=== PATIENT | male | born 1945 | race Two or more races ===

== ENCOUNTER 2020-08-10 23:04 | Inpatient (IN) | payer MEDICARE, OTHER ==
[~2020-08-10] VITALS: Ht 170.2 cm; Wt 53.1 kg
[2020-08-10 23:48] LABS: HEMATOCRIT 22.9 % (42.0-52.0); HEMOGLOBIN 7.7 G/DL (14.2-18.0); MEAN CORPUSCULAR VOLUME 92 FL (80-99); PLATELET COUNT 160 K/UL (150-450); RED BLOOD COUNT 2.48 M/UL (4.70-6.10); RED CELL DISTRIBUTION WIDTH 17.5 % (11.6-14.8)
[2020-08-11] VITALS (8 sets, daily range): BP systolic 96–127; BP diastolic 59–79
[2020-08-11 00:01] LABS: ANION GAP 8 mmol/L (5-15); BLOOD UREA NITROGEN 27 mg/dL (7-18); CALCIUM 9.1 MG/DL (8.5-10.1); CARBON DIOXIDE 24 MMOL/L (21-32); CHLORIDE 100 MMOL/L (98-107); POTASSIUM 4.3 MMOL/L (3.5-5.1); SODIUM 132 MMOL/L (136-145)
[2020-08-11 00:04] LABS: INR 1.1 (0.9-1.1)
[2020-08-11 00:12] LABS: ALANINE AMINOTRANSFERASE 24 U/L (12-78); ALBUMIN 2.5 G/DL (3.4-5.0); ALBUMIN/GLOBULIN RATIO 0.6 (1.0-2.7); ALKALINE PHOSPHATASE 320 U/L (46-116); ASPARTATE AMINO TRANSFERASE 53 U/L (15-37); BILIRUBIN,TOTAL 1.4 MG/DL (0.2-1.0)
[2020-08-11 00:29] LABS: BILIRUBIN,DIRECT 1.1 MG/DL (0.0-0.3)
--- NOTE | 2020-08-11 00:31 | Emergency Room Report ---
History of Present Illness General Chief Complaint: Abnormal Labs Source: Patient Present Illness HPI 75-year-old male with past medical history of cirrhosis, diabetes, hypertension, dyslipidemia, anemia presents from [facility] for evaluation of anemia. Patient apparently had outpatient labs drawn on 08/10/2020 which showed hemoglobin of 6.1 and hematocrit of 18.9. Baseline hemoglobin from previous records on 08/04/2020 was 8.7. Patient states he is having generalized weakness. Denies melena, hematochezia, hematemesis, nausea, vomiting, diarrhea, chest pain, palpitations, weakness, headache or other symptoms The patient's symptoms were gradual onset, severity was moderate, duration since 1 day. Quality: No pain Past medical history: Cirrhosis, anemia, diabetes, hypertension, dyslipidemia Past surgical history: Denies Smoking: Denies Alcohol use: Denies Drug use: Denies Review of systems: CONST: No fevers or chills, No night sweats PULMONARY: No productive cough, No shortness of breath CARDIAC: No chest pain, No palpitations GI: No vomiting, No diarrhea , No melena_or_BRBPR : No dysuria, No hematuria, No discharge NEURO: No new_focal_weakness_or_numbness, No confusion, No vision changes 14 point Review of Systems is otherwise negative except per HPI Physical Exam: GENERAL: Awake_alert_ nontoxic, no acute distress Spo2 100% on RA -normal. Cachectic EYES: Extraocular muscles are intact. Conjunctivae clear. Lids without swelling. Oral icterus. Jaundice ENT: External nose and ear normal_in_appearance. Oropharynx clear. Head_atraumatic, Moist_oral_mucosa NECK: No JVD. No meningismus. No thyromegaly. Supple. Trachea midline RESP: Normal respiratory effort. Symmetric rise. No stridor. Clear_to_auscultation_No_rales_No_wheezes CARDIAC: Regular rate and regular rhytm. No_significant pedal edema. ABDOMEN: Soft. Nondistended. Nontender_No_rebound_or_guarding. Melena MSK: Normal muscle tone, without rigidity. Extremities without asymmetric deformity or swelling. SKIN: Warm and dry. No visible cyanosis or pallor NEUROLOGIC: Alert, oriented x3. Motor_and_sensation_grossly_intact. No truncal ataxia. Gait_normal. Asterix[employer] Psych: Normal mood and affect, normal judgment and insight - COORDINATION OF CARE Case was discussed with: Patient, Patient's Physician Any labs and imaging that were ordered were interpreted as part of the medical decision making: Medical Decision Making/Plan: Differential diagnosis includes upper GI bleed from bleeding peptic ulcer, bleeding duodenal ulcer, gastritis, esophageal varices, gastric varices, among others. Given the possibility of a bleeding peptic ulcer, Protonix IV was immediately started. Ceftriaxone IV also given. Because of Hgb 7 with melena, the patient will immediately be transfused 1 units of PRBC, and admitted for further care and management. The patient does not require any emergent anticoagulation reversal at this time point, although it was considered. Patient is protecting their airway, no active vomiting, no need for NG tube or intubation at this time. The patient is currently hemodynamically stable, and stable for transfer to the floor at this time. I spoke with Dr. Mota, and reviewed the patients presentation, workup, results, and treatment. They will admit the patient for further care and evaluation, and assume care of the patient at this time. 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 COVID-19 Screening: Negative COVID-19 COVID-19 Testing Source: 08/06/2020 Nursing Documentation-H Hx Cardiac Problems: Yes - ANEMIA, HYPERLIPIDEMIA, HYPOTHYROIDISM Hx Hypertension: Yes Hx Neurological Problems: Yes - METABOLIC ENCEPHALOPATHY, CELLULITIS OF LEFT LE G Physical Exam Vital Signs Date Time Temp Pulse Resp B/P (MAP) Pulse Ox O2 Delivery O2 Flow Rate FiO2 08/10/20 23:06 97.5 88 16 111/67 (82) 98 Room Air Sp02 EP Interpretation: reviewed, normal Procedures Critical Care Time Critical Care Time Critical Care Statement Organ systems at risk include:, Circulatory, GI Critical care performed for 45 minutes. Time is exclusive of separately billable procedures. Time includes: direct patient care, continuous monitoring and multiple patient reassessment, coordination of patient care, review of patient's medical records, medical consultation, family consultation regarding treatment decisions and documentation of patient care. Medical Decision Making Diagnostic Impression: Primary Impression: Melena Additional Impressions: GI bleed Cirrhosis Symptomatic anemia EKG Diagnostic Results Troponin ordered: Yes When was troponin ordered?: Aug 11, 2020 EKG Time: 00:30 Rate: normal Rhythm: NSR MANOLO Dealibsabra Reid 12-lead EKG (interpreted by me) Time: 004 Indication: Rhythm analysis Tracing visualized and Interpreted by me. Rhythm: Normal sinus rhythm Rate: 91 bpm QTc: 526 Morphology: No_significant_ST_elevations_or_depressions, No STEMI Impression: Bundle branch block. Normal sinus rhythm. Wide QTC Rhythm Strip Diag. Results Rhythm Strip Time: 00:31 EP Interpretation: yes Rate: 87 Rhythm: NSR, no PVC's, no ectopy Chest X-Ray Diagnostic Results Chest X-Ray Diagnostic Results : MANOLO Dealibsabra Reid Chest X-Ray: Views: 1 view(s) Indication: sob Findings: Normal heart size. Mediastinum normal. No infiltrate. Impression: NAD The X-ray(s) were independently viewed and interpreted contemporaneously Electronically signed by Sharifa valdivia DO Reevaluation Time: 00:31 Last Vital Signs Date Time Temp Pulse Resp B/P (MAP) Pulse Ox O2 Delivery O2 Flow Rate FiO2 08/11/20 00:16 98.2 86 19 126/59 100 Room Air Status: improved Disposition: ADMITTED INPATIENT Admit Decision Time: 00:31 Condition: Stable Referrals: Katt Mota MD (PCP) Sharifa Forrester D.O. Aug 11, 2020 00:31
[2020-08-11] MEDS ORDERED: Pantoprazole Inj IVP ONE (00:45)
[2020-08-11] MEDS ORDERED: cefTRIAXone 1 GM in NS 55 ML IVPB ONE (00:45)
[2020-08-11] MEDS ORDERED: ATORVASTATIN CA40 MG ORAL (02:08)
[2020-08-11] MEDS ORDERED: METFORMIN HCL850 M1 ORAL (02:08)
[2020-08-11] MEDS ORDERED: LISINOPRIL20 MG ORAL (02:08)
[2020-08-11] MEDS ORDERED: METOPROLOL TART25 MG ORAL (02:08)
[2020-08-11] MEDS ORDERED: LEVOTHYROXINE100 MC1 PO (02:08)
[2020-08-11] MEDS ORDERED: Morphine Sulfate 2mg/ml Inj(IV/IM USE ONLY) IVP PRN (03:15)
[2020-08-11] MEDS ORDERED: Miralax 17gm pkt ORAL PRN (03:15)
[2020-08-11] MEDS ORDERED: Pantoprazole Inj IV SCH (09:00)
[2020-08-11] MEDS: metFORMIN 500mg tab ORAL SCH ×2 (09:04→18:00)
[2020-08-11] MEDS: Lisinopril 20mg tab ORAL SCH (09:04)
[2020-08-11] MEDS: Docusate 100mg cap ORAL SCH ×2 (09:04→21:26)
--- NOTE | 2020-08-11 14:53 | Diagnostic Imaging Report ---
Indication: Shortness of breath Technique: One view of the chest Comparison: none Findings: No acute infiltrates, effusions, or congestion. Tortuous calcified aorta. Normal heart size. Upper mediastinum unremarkable. Impression: No acute process.
--- NOTE | 2020-08-11 15:27 | History and Physical ---
History of Present Illness General Date patient seen: Aug 11, 2020 Time patient seen: 13:00 Reason for Hospitalization: Abnormal Labs Present Illness HPI 75-year-old male with past medical history of liver cirrhosis, diabetes, hypertension, dyslipidemia, anemia presents from [facility] for evaluation of anemia. The patient is known to me since [facility] [place] [facility]. He developed melena yesterday with 3 large bouts of stool. [facility] outpatient labs drawn on 08/10/2020 which showed hemoglobin of 6.1 and hematocrit of 18.9. Baseline hemoglobin from previous records on 08/04/2020 was 8.7. Patient states he is having generalized weakness. Denies melena, hematochezia, hematemesis, nausea, vomiting, diarrhea, chest pain, palpitations, weakness, headache or other symptoms The patient's symptoms were gradual onset, severity was moderate, duration since 1 day. I spoke with the ER physician and admission was requested for PRBC and hemodynamic monitoring. Allergies: Coded Allergies: No Known Allergies (Unverified , 08/10/20) COVID-19 Screening Contact w/high risk pt: Yes Experienced COVID-19 symptoms?: No Medication History Scheduled Atorvastatin Calcium* (Atorvastatin Calcium*), 40 MG ORAL BEDTIME, (Reported) Levothyroxine Sodium* (Levothyroxine Sodium*), 50 MCG PO DAILY, (Reported) Lisinopril (Lisinopril*), 20 MG ORAL DAILY, (Reported) Metformin Hcl* (Metformin Hcl*), 1,000 MG ORAL BID, (Reported) Metoprolol Tartrate* (Metoprolol Tartrate*), 25 MG ORAL EVERY 12 HOURS, (Reported) Patient History Healthcare decision maker Resuscitation status Advanced Directive on File Review of Systems All Other Systems: negative except mentioned in HPI Physical Exam General Appearance: WD/WN, mild distress Lines, tubes and drains: peripheral HEENT: normocephalic, atraumatic Neck: non-tender Respiratory/Chest: lungs clear Cardiovascular/Chest: normal rate Abdomen: non tender Extremities: non-tender 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 Last 24 Hour Vital Signs Date Time Temp Pulse Resp B/P (MAP) Pulse Ox O2 Delivery O2 Flow Rate FiO2 08/11/20 13:41 96 08/11/20 09:04 113/67 08/11/20 09:00 95 113/67 08/11/20 09:00 Room Air 08/11/20 08:34 95 18 113/67 (82) 100 08/11/20 08:00 99 08/11/20 05:45 Room Air 08/11/20 05:28 98.5 92 18 96/79 98 Room Air 08/11/20 05:15 98.5 92 18 96/79 98 Room Air 08/11/20 05:15 98.5 65 18 08/11/20 05:00 98.1 75 18 08/11/20 05:00 98.1 92 18 111/60 98 Room Air 08/11/20 02:55 97.8 92 19 127/62 98 Room Air 08/11/20 00:16 98.2 86 19 126/59 100 Room Air 08/10/20 23:06 97.5 88 16 111/67 (82) 98 Room Air Intake and Output 08/10/20 08/11/20 19:00 07:00 Intake Total 1500 ml Balance 1500 ml Intake IV Total 1000 ml Blood Product 500 ml Laboratory Tests Test 08/10/20 23:15 08/10/20 23:30 08/10/20 23:45 08/11/20 00:27 White Blood Count 6.0 K/UL (4.8-10.8) Red Blood Count 2.48 M/UL (4.70-6.10) L Hemoglobin 7.7 G/DL (14.2-18.0) L Hematocrit 22.9 % (42.0-52.0) L Mean Corpuscular Volume 92 FL (80-99) Mean Corpuscular Hemoglobin 31.0 PG (27.0-31.0) Mean Corpuscular Hemoglobin Concent 33.5 G/DL (32.0-36.0) Red Cell Distribution Width 17.5 % (11.6-14.8) H Platelet Count 160 K/UL (150-450) Mean Platelet Volume 8.7 FL (6.5-10.1) Neutrophils (%) (Auto) % (45.0-75.0) Lymphocytes (%) (Auto) % (20.0-45.0) Monocytes (%) (Auto) % (1.0-10.0) Eosinophils (%) (Auto) % (0.0-3.0) Basophils (%) (Auto) % (0.0-2.0) Prothrombin Time 12.4 SEC (9.30-11.50) H Prothromb Time International Ratio 1.1 (0.9-1.1) Activated Partial Thromboplast Time 24 SEC (23-33) Sodium Level 132 MMOL/L (136-145) L Potassium Level 4.3 MMOL/L (3.5-5.1) Chloride Level 100 MMOL/L (98-107) Carbon Dioxide Level 24 MMOL/L (21-32) Anion Gap 8 mmol/L (5-15) Blood Urea Nitrogen 27 mg/dL (7-18) H Creatinine 1.0 MG/DL (0.55-1.30) Estimat Glomerular Filtration Rate > 60 mL/min (>60) Glucose Level 97 MG/DL (74-106) Calcium Level 9.1 MG/DL (8.5-10.1) Total Bilirubin 1.4 MG/DL (0.2-1.0) H Direct Bilirubin 1.1 MG/DL (0.0-0.3) H Aspartate Amino Transf (AST/SGOT) 53 U/L (15-37) H Alanine Aminotransferase (ALT/SGPT) 24 U/L (12-78) Alkaline Phosphatase 320 U/L (46-116) H Troponin I 0.022 ng/mL (0.000-0.056) Total Protein 7.0 G/DL (6.4-8.2) Albumin 2.5 G/DL (3.4-5.0) L Globulin 4.5 g/dL Albumin/Globulin Ratio 0.6 (1.0-2.7) L Lipase 140 U/L (73-393) Ammonia 18 umol/L (11-32) Stool Occult Blood Positive (NEGATIVE) POC Whole Blood Glucose 90 MG/DL (74-106) Microbiology Date/Time Source Procedure Growth Status 08/10/20 23:30 Nasopharynx SARS-CoV-2 RdRp Gene Assay - Final Complete Height (Feet): 5 Height (Inches): 7.00 Weight (Pounds): 142 Medications Current Medications Medications (Trade) Dose Ordered Sig/Lauren Route PRN Reason Start Time Stop Time Status Last Admin Dose Admin Acetaminophen (Tylenol) 650 mg Q4H PRN ORAL Mild Pain (Pain Scale 1-3) 08/11/20 03:15 09/10/20 03:14 Atorvastatin Calcium (Lipitor) 40 mg BEDTIME ORAL 08/11/20 21:00 11/09/20 20:59 Ceftriaxone Sodium 1 gm/ Sodium Chloride 55 ml @ 110 mls/hr DAILY@2100 IVPB 08/11/20 21:00 08/18/20 20:59 Dextrose (Dextrose 50%) 25 ml Q30M PRN IV Hypoglycemia 08/11/20 03:15 11/09/20 03:14 Dextrose (Dextrose 50%) 50 ml Q30M PRN IV Hypoglycemia 08/11/20 03:15 11/09/20 03:14 Docusate Sodium (Colace) 100 mg EVERY 12 HOURS ORAL 08/11/20 09:00 09/10/20 08:59 08/11/20 09:04 Levothyroxine Sodium (Synthroid) 50 mcg DAILY@0630 ORAL 08/11/20 07:30 09/10/20 07:29 08/11/20 09:18 Lisinopril (PriniviL) 20 mg DAILY ORAL 08/11/20 09:00 09/10/20 08:59 08/11/20 09:04 Metformin HCl (Glucophage) 1,000 mg BID ORAL 08/11/20 09:00 09/10/20 08:59 08/11/20 09:04 Metoprolol Tartrate (Lopressor) 25 mg EVERY 12 HOURS ORAL 08/11/20 09:00 11/09/20 08:59 Morphine Sulfate (Morphine Sulfate) 2 mg Q3H PRN IVP Moderate Pain (Pain Scale 4-6) 08/11/20 03:15 08/18/20 03:14 Octreotide Acetate 500 mcg/ Sodium Chloride 500 ml @ 50 mls/hr Q10H IV 08/11/20 15:00 09/10/20 14:59 Ondansetron HCl (Zofran) 4 mg Q6H PRN IVP Nausea & Vomiting 08/11/20 03:15 09/10/20 03:14 Pantoprazole (Protonix) 40 mg EVERY 12 HOURS IV 08/11/20 21:00 09/10/20 20:59 Polyethylene Glycol (Miralax) 17 gm DAILYPRN PRN ORAL Constipation 08/11/20 03:15 09/10/20 03:14 Assessment/Plan Assessment/Plan: 75 year old male with history of liver cirrhosis who is admitted due to : # Acute blood loss anemia due to GI hemorrhage of uncertain etiology PPI started PRBC 2 units given Repeat H/H today as persistent melana is noted. GI consultation requested Liver US Await GI recommendations. # Liver Cirrhosis Monitor LFT's INR is stable at 1.1 # History of diabetes Monitor BG and [place] # Hypertension Monitor and adjust medication as needed. # HLD On statin Diet: Cardiac for now. Await GI input for any need for interventions. IV: HL FULL CODE - will discuss in detail with the patient as he had expressed wished to be DNR in the SNF. SCD ppx Activity as tolerated Katt Mota MD Aug 11, 2020 15:27
--- NOTE | 2020-08-11 16:00 | Consultation ---
DATE OF CONSULTATION: 08/11/2020 GASTROENTEROLOGY CONSULTATION CONSULTING PHYSICIAN: Ryne Morales MD REFERRING PHYSICIAN: Dr. Mota. CHIEF COMPLAINT: GI bleeding. HISTORY OF PRESENT ILLNESS: This is a 75-year-old male with past medical history of cirrhosis, diabetes, hypertension, dyslipidemia, anemia, who presented from the [facility] with complaint of anemia. According to the nurses, the patient has been having some dark stools. The patient denies any abdominal pain at this time. No nausea. No vomiting. No dysphagia. No hematochezia. Unfortunately, the patient was eating lunch by the time I examined him, so he was not NPO. PAST MEDICAL HISTORY: 1. History of cirrhosis. 2. Diabetes. 3. Hypertension. 4. Dyslipidemia. 5. Anemia. MEDICATIONS: Please see medication reconciliation list. ALLERGIES: No known drug allergies. SOCIAL HISTORY: The patient denies any recent tobacco, alcohol, or IV drug abuse. REVIEW OF SYSTEMS: CONSTITUTIONAL: Denies any fevers or chills. Denies any significant weight loss. HEENT: Denies any change in vision. No double vision. No blurry vision. CARDIOVASCULAR: Denies any chest pain or shortness of breath. No orthopnea. No PND. PULMONARY: Denies any cough or wheezing. No excessive sputum production. GASTROINTESTINAL: As above. GENITOURINARY: Denies any flank pain, dysuria, or hematuria. NEUROLOGIC: Denies any strokes. PHYSICAL EXAMINATION: VITAL SIGNS: Temperature, the patient is afebrile. Pulse is 96, respirations 18, blood pressure is 113/67. HEENT: Normocephalic and atraumatic. Pale conjunctivae. NECK: Supple. No evidence of obvious lymphadenopathy. CARDIOVASCULAR: Regular rate and rhythm. Plus S1, S2. LUNGS: Decreased breath sounds bilaterally based on the supine exam, right more than left. ABDOMEN: Soft, mildly distended. No rebound. No guarding. No peritoneal sign. EXTREMITIES: No cyanosis. No clubbing. No edema. LABORATORY DATA: White count is 6, hemoglobin 7.7, hematocrit 22, platelet count is 160,000. INR is 1.1. Chem-7, BUN is 27, creatinine is 1.0, total bilirubin is 1.4, direct is 1.1. ASSESSMENT AND PLAN: This is a 75-year-old male with cirrhosis, possible GI bleeding. Unfortunately, the patient was having lunch when I examined him, so it was too late to get him for endoscopy today. Overall, the patient looks stable. There is no hypotension and no obvious hematochezia. Our plan will be to continue on Protonix, change it to q.12h., octreotide. Monitor for GI bleed. Hemoglobin and hematocrit on daily basis and transfuse to keep hemoglobin above 7. Follow up INR and correct if needed. Abdominal ultrasound for evaluation of ascites. Plan to do endoscopy on Friday or sooner if the patient shows signs and symptoms of bleeding. I want to thank Dr. Mota for this kind referral. Ryne Morales M.D. DR: Destin JOB#: [id number] CC: Dr. Mota
[2020-08-11 16:26] LABS: BASOPHILS % (AUTO) 0.8 % (0.0-2.0); EOSINOPHILS % (AUTO) 0.2 % (0.0-3.0); HEMATOCRIT 25.3 % (42.0-52.0); HEMOGLOBIN 8.4 G/DL (14.2-18.0); LYMPHOCYTES % (AUTO) 32.6 % (20.0-45.0); MEAN CORPUSCULAR VOLUME 90 FL (80-99); MONOCYTES % (AUTO) 8.6 % (1.0-10.0); NEUTROPHILS % (AUTO) 57.8 % (45.0-75.0); PLATELET COUNT 136 K/UL (150-450); RED BLOOD COUNT 2.81 M/UL (4.70-6.10); WHITE BLOOD COUNT 4.9 K/UL (4.8-10.8)
[2020-08-11] MEDS: NovoLOG Insulin Flexpen SUBQ SCH ×2 (16:30→21:00)
--- NOTE | 2020-08-11 17:58 | Diagnostic Imaging Report ---
EXAM: US Abdomen Complete CLINICAL HISTORY: ABD PAIN TECHNIQUE: Real-time ultrasound of the abdomen with image documentation. COMPARISON: No relevant prior studies available. FINDINGS: Liver: Nodular contour. Perihepatic ascites. No mass. No intrahepatic bile duct dilation. Gallbladder: No gallstones. No pericholecystic fluid. No gallbladder wall thickening. Negative Wilkinson's sign. Common bile duct: No stones. No dilation. Pancreas: Partially obscured. Kidneys: No stones. No solid mass. No hydronephrosis. Increased echogenicity of the right kidney. Spleen: Not visualized. Aorta: No aneurysm. Inferior vena cava: Unremarkable. Mild right pleural effusion. IMPRESSION: 1. Mild right pleural effusion. 2. Cirrhosis with perihepatic ascites. 3. Increased echogenicity of the right kidney, likely related to underlying medical renal disease.
[2020-08-11] MEDS: Octreotide Acetate 500 MCG in Sodium Chloride 499 ML IV SCH (18:12)
[2020-08-11] MEDS: Atorvastatin 20mg tab ORAL SCH (21:25)
[2020-08-11] MEDS: Pantoprazole Inj IV SCH (21:25)
[2020-08-11] MEDS: cefTRIAXone 1 GM in NS 55 ML IVPB SCH (21:26)
[2020-08-12] VITALS: BP 118/60
[2020-08-12] MEDS: Octreotide Acetate 500 MCG in Sodium Chloride 499 ML IV SCH ×3 (01:00→20:52)
[2020-08-12 04:00] VITALS: BP 121/68
[2020-08-12] MEDS: NovoLOG Insulin Flexpen SUBQ SCH ×4 (06:30→20:56)
[2020-08-12 07:39] LABS: HEMATOCRIT 26.3 % (42.0-52.0); HEMOGLOBIN 8.4 G/DL (14.2-18.0); MEAN CORPUSCULAR VOLUME 94 FL (80-99); PLATELET COUNT 123 K/UL (150-450); RED CELL DISTRIBUTION WIDTH 16.9 % (11.6-14.8); WHITE BLOOD COUNT 3.2 K/UL (4.8-10.8)
[2020-08-12 07:45] LABS: INR 1.1 (0.9-1.1)
[2020-08-12 08:00] VITALS: BP 113/65
[2020-08-12 08:22] LABS: ALBUMIN 2.2 G/DL (3.4-5.0); ALBUMIN/GLOBULIN RATIO 0.5 (1.0-2.7); BILIRUBIN,TOTAL 1.2 MG/DL (0.2-1.0); CREATININE 1.2 MG/DL (0.55-1.30); POTASSIUM 4.1 MMOL/L (3.5-5.1)
[2020-08-12 08:23] LABS: BILIRUBIN,DIRECT 0.9 MG/DL (0.0-0.3)
[2020-08-12] MEDS: Docusate 100mg cap ORAL SCH ×2 (09:00→20:54)
[2020-08-12] MEDS: Lisinopril 20mg tab ORAL SCH (09:00)
[2020-08-12] MEDS: metFORMIN 500mg tab ORAL SCH ×2 (09:00→19:20)
[2020-08-12] MEDS: Pantoprazole Inj IV SCH ×2 (09:00→20:53)
--- NOTE | 2020-08-12 10:38 | General Progress Note ---
Subjective Date patient seen: Aug 12, 2020 Time patient seen: 10:30 ROS Limited/Unobtainable: No Allergies: Coded Allergies: No Known Allergies (Unverified , 08/10/20) All Systems: reviewed and negative except above Subjective Denies abdominal pain, chest pain, shortness of breath, Reported melena. GUAIC positive Objective Last 24 Hour Vital Signs Date Time Temp Pulse Resp B/P (MAP) Pulse Ox O2 Delivery O2 Flow Rate FiO2 08/12/20 09:00 Room Air 08/12/20 09:00 85 113/65 08/12/20 09:00 113/65 08/12/20 08:00 97.7 85 20 113/65 (81) 99 08/12/20 08:00 83 08/12/20 04:00 85 08/12/20 04:00 98.6 97 20 121/68 (85) 97 08/12/20 00:00 92 08/12/20 00:00 98.7 92 18 118/60 (79) 100 08/11/20 21:25 99 118/61 08/11/20 21:00 Room Air 08/11/20 20:00 92 08/11/20 20:00 98.1 93 22 116/68 (84) 100 08/11/20 16:00 95 08/11/20 16:00 97.9 91 18 117/63 (81) 100 08/11/20 13:41 96 08/11/20 12:00 97.8 90 18 115/64 (81) 0 Intake and Output 08/11/20 08/12/20 19:00 07:00 Intake Total 1720 ml Balance 1720 ml Intake Oral 720 ml IV Total 1000 ml # Bowel Movements 2 Laboratory Tests 08/11/20 16:00: White Blood Count 4.9, Red Blood Count 2.81L, Hemoglobin 8.4L, Hematocrit 25.3L, Mean Corpuscular Volume 90, Mean Corpuscular Hemoglobin 29.9, Mean Corpuscular Hemoglobin Concent 33.2, Red Cell Distribution Width 17.0H, Platelet Count 136L, Mean Platelet Volume 8.1, Neutrophils (%) (Auto) 57.8, Lymphocytes (%) (Auto) 32.6, Monocytes (%) (Auto) 8.6, Eosinophils (%) (Auto) 0.2, Basophils (%) (Auto) 0.8, Hemoglobin A1c 5.1 08/12/20 06:45: White Blood Count 3.2L, Red Blood Count 2.80L, Hemoglobin 8.4L, Hematocrit 26.3L , Mean Corpuscular Volume 94, Mean Corpuscular Hemoglobin 30.0, Mean Corpuscular Hemoglobin Concent 32.0, Red Cell Distribution Width 16.9H, Platelet Count 123L, Mean Platelet Volume 7.4, Neutrophils (%) (Auto) , Lymphocytes (%) (Auto) , Monocytes (%) (Auto) , Eosinophils (%) (Auto) , Basophils (%) (Auto) , Differential Total Cells Counted 100, Neutrophils % (Manual) 59, Lymphocytes % (Manual) 36, Monocytes % (Manual) 5, Eosinophils % (Manual) 0, Basophils % (Manual) 0, Band Neutrophils 0, Platelet Estimate DecreasedL, Platelet Morphology Normal, Hypochromasia 1+, Anisocytosis 1+, Prothrombin Time 12.2H, Prothromb Time International Ratio 1.1, Activated Partial Thromboplast Time 26, Sodium Level 132L, Potassium Level 4.1, Chloride Level 102, Carbon Dioxide Level 19L, Anion Gap 11, Blood Urea Nitrogen 19H, Creatinine 1.2, Estimat Glomerular Filtration Rate 58.9, Glucose Level 197#H, Calcium Level 8.0L, Total Bilirubin 1.2H, Direct Bilirubin 0.9H, Aspartate Amino Transf (AST/SGOT) 50H, Alanine Aminotransferase (ALT/SGPT) 23, Alkaline Phosphatase 254H, Ammonia < 10L, Total Protein 6.4, Albumin 2.2L, Globulin 4.2, Albumin/Globulin Ratio 0.5L, Thyroid Stimulating Hormone (TSH) 1.738 Height (Feet): 5 Height (Inches): 7.00 Weight (Pounds): 142 General Appearance: WD/WN EENT: PERRL/EOMI Neck: non-tender Cardiovascular: normal rate Abdomen: non tender Extremities: normal range of motion Edema: trace edema 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 GI consultation appreciated, EGD is planned for Friday. Liver US # Liver Cirrhosis Monitor LFT's INR is stable at 1.1 # History of diabetes Monitor BG and IND[place] # Hypertension Monitor and adjust medication as needed. # HLD On statin Diet: Cardiac for now. NPO per GI recs to be ordered 11/8 PM IV: HL FULL CODE - will discuss in detail with the patient as he had expressed wished to be DNR in the SNF. SCD ppx Activity as tolerated Katt Mota MD Aug 12, 2020 10:38
[2020-08-12 12:00] VITALS: BP 118/68
[2020-08-12 16:00] VITALS: BP 106/56
--- NOTE | 2020-08-12 18:15 | General Progress Note ---
Subjective Allergies: Coded Allergies: No Known Allergies (Unverified , 08/10/20) Subjective above noted no abdominal symptoms U/S noted--cirrhosis with perihepatic ascites Objective Last 24 Hour Vital Signs Date Time Temp Pulse Resp B/P (MAP) Pulse Ox O2 Delivery O2 Flow Rate FiO2 08/12/20 16:00 97.6 97 20 106/56 (73) 99 08/12/20 16:00 87 08/12/20 12:00 97.7 94 20 118/68 (85) 99 08/12/20 12:00 81 08/12/20 09:00 Room Air 08/12/20 09:00 85 113/65 08/12/20 09:00 113/65 08/12/20 08:00 97.7 85 20 113/65 (81) 99 08/12/20 08:00 83 08/12/20 04:00 85 08/12/20 04:00 98.6 97 20 121/68 (85) 97 08/12/20 00:00 92 08/12/20 00:00 98.7 92 18 118/60 (79) 100 08/11/20 21:25 99 118/61 08/11/20 21:00 Room Air 08/11/20 20:00 92 08/11/20 20:00 98.1 93 22 116/68 (84) 100 Intake and Output 08/11/20 08/12/20 19:00 07:00 Intake Total 1720 ml Balance 1720 ml Intake Oral 720 ml IV Total 1000 ml # Bowel Movements 2 Laboratory Tests 08/12/20 06:45: White Blood Count 3.2L, Red Blood Count 2.80L, Hemoglobin 8.4L, Hematocrit 26.3L , Mean Corpuscular Volume 94, Mean Corpuscular Hemoglobin 30.0, Mean Corpuscular Hemoglobin Concent 32.0, Red Cell Distribution Width 16.9H, Platelet Count 123L, Mean Platelet Volume 7.4, Neutrophils (%) (Auto) , Lymphocytes (%) (Auto) , Monocytes (%) (Auto) , Eosinophils (%) (Auto) , Basophils (%) (Auto) , Differential Total Cells Counted 100, Neutrophils % (Manual) 59, Lymphocytes % (Manual) 36, Monocytes % (Manual) 5, Eosinophils % (Manual) 0, Basophils % (Manual) 0, Band Neutrophils 0, Platelet Estimate DecreasedL, Platelet Morphology Normal, Hypochromasia 1+, Anisocytosis 1+, Prothrombin Time 12.2H, Prothromb Time International Ratio 1.1, Activated Partial Thromboplast Time 26, Sodium Level 132L, Potassium Level 4.1, Chloride Level 102, Carbon Dioxide Level 19L, Anion Gap 11, Blood Urea Nitrogen 19H, Creatinine 1.2, Estimat Glomerular Filtration Rate 58.9, Glucose Level 197#H, Calcium Level 8.0L, Total Bilirubin 1.2H, Direct Bilirubin 0.9H, Aspartate Amino Transf (AST/SGOT) 50H, Alanine Aminotransferase (ALT/SGPT) 23, Alkaline Phosphatase 254H, Ammonia < 10L, Total Protein 6.4, Albumin 2.2L, Globulin 4.2, Albumin/Globulin Ratio 0.5L, Thyroid Stimulating Hormone (TSH) 1.738 08/12/20 11:41: POC Whole Blood Glucose 197H 08/12/20 16:58: POC Whole Blood Glucose 98 Height (Feet): 5 Height (Inches): 7.00 Weight (Pounds): 142 Objective WDWN NCAT supple CTA RR abd soft flat no edema Assessment/Plan Status: stable Assessment/Plan: Assessment - GIB/Dark stools (OB +) - cirrhosis - Anemia Recommendations - po as tolerated - monitor labs - check hepatitis serologies - possible EGD Cullen Reese MD Aug 12, 2020 18:15
[2020-08-12 20:00] VITALS: BP 100/60
[2020-08-12] MEDS: cefTRIAXone 1 GM in NS 55 ML IVPB SCH (20:54)
[2020-08-12] MEDS: Atorvastatin 20mg tab ORAL SCH (20:54)
[2020-08-13] VITALS: BP 108/60
[2020-08-13 04:00] VITALS: BP 100/58
[2020-08-13] MEDS: NovoLOG Insulin Flexpen SUBQ SCH ×4 (06:34→21:00)
[2020-08-13] MEDS: Octreotide Acetate 500 MCG in Sodium Chloride 499 ML IV SCH ×2 (06:35→17:19)
[2020-08-13 07:52] LABS: BASOPHILS % (AUTO) 1.1 % (0.0-2.0); EOSINOPHILS % (AUTO) 1.1 % (0.0-3.0); HEMATOCRIT 25.6 % (42.0-52.0); HEMOGLOBIN 8.1 G/DL (14.2-18.0); LYMPHOCYTES % (AUTO) 39.4 % (20.0-45.0); MEAN CORPUSCULAR VOLUME 95 FL (80-99); MONOCYTES % (AUTO) 10.5 % (1.0-10.0); NEUTROPHILS % (AUTO) 47.9 % (45.0-75.0); PLATELET COUNT 127 K/UL (150-450); RED BLOOD COUNT 2.69 M/UL (4.70-6.10); RED CELL DISTRIBUTION WIDTH 16.6 % (11.6-14.8); WHITE BLOOD COUNT 4.7 K/UL (4.8-10.8)
[2020-08-13 08:21] VITALS: BP 105/63
[2020-08-13] MEDS: Lisinopril 20mg tab ORAL SCH (08:53)
[2020-08-13] MEDS: metFORMIN 500mg tab ORAL SCH ×2 (08:55→17:53)
[2020-08-13] MEDS: Docusate 100mg cap ORAL SCH ×2 (08:55→21:00)
[2020-08-13] MEDS: Pantoprazole Inj IV SCH ×2 (08:55→21:10)
--- NOTE | 2020-08-13 09:11 | General Progress Note ---
Subjective Date patient seen: Aug 13, 2020 Time patient seen: 09:20 ROS Limited/Unobtainable: No Allergies: Coded Allergies: No Known Allergies (Unverified , 08/10/20) Subjective Denies abdominal pain, chest pain, shortness of breath, Reported melena. GUAIC positive Objective Last 24 Hour Vital Signs Date Time Temp Pulse Resp B/P (MAP) Pulse Ox O2 Delivery O2 Flow Rate FiO2 08/13/20 08:55 89 105/63 08/13/20 08:53 105/63 08/13/20 08:23 Room Air 08/13/20 08:21 97.5 89 18 105/63 (77) 96 08/13/20 04:00 96 08/13/20 04:00 97.5 93 20 100/58 (72) 95 08/13/20 00:00 96 08/13/20 00:00 97.9 91 20 108/60 (76) 98 08/12/20 21:00 Room Air 08/12/20 21:00 91 100/60 08/12/20 20:00 91 08/12/20 20:00 97.9 91 20 100/60 (73) 98 08/12/20 16:00 97.6 97 20 106/56 (73) 99 08/12/20 16:00 87 08/12/20 12:00 97.7 94 20 118/68 (85) 99 08/12/20 12:00 81 Intake and Output 08/12/20 08/13/20 19:00 07:00 Intake Total 324 ml 400 ml Output Total 500 ml Balance 324 ml -100 ml Intake Oral 324 ml 400 ml Output Urine Total 500 ml # Voids 5 # Bowel Movements 2 3 Laboratory Tests 08/12/20 11:41: POC Whole Blood Glucose 197H 08/12/20 16:58: POC Whole Blood Glucose 98 08/12/20 20:02: POC Whole Blood Glucose [Pending] 08/13/20 05:51: POC Whole Blood Glucose 171H 08/13/20 07:25: White Blood Count 4.7L, Red Blood Count 2.69L, Hemoglobin 8.1L, Hematocrit 25.6L , Mean Corpuscular Volume 95, Mean Corpuscular Hemoglobin 30.2, Mean Corpuscular Hemoglobin Concent 31.7L, Red Cell Distribution Width 16.6H, Platelet Count 127L, Mean Platelet Volume 7.6, Neutrophils (%) (Auto) 47.9, Lymphocytes (%) (Auto) 39.4, Monocytes (%) (Auto) 10.5H, Eosinophils (%) (Auto) 1.1, Basophils (%) (Auto) 1.1, Hepatitis A IgM Antibody [Pending], Hepatitis B Surface Antigen [Pending], Hepatitis B Core IgM Antibody [Pending], Hepatitis C Antibody [Pending] Height (Feet): 5 Height (Inches): 7.00 Weight (Pounds): 142 General Appearance: WD/WN EENT: PERRL/EOMI Neck: non-tender Cardiovascular: normal rate Respiratory/Chest: lungs clear Edema: trace edema 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 # Liver Cirrhosis Monitor LFT's INR is stable at 1.1 Liver US with cirrhosis and perihepatic ascites # History of diabetes Monitor BG and [place] # Hypertension Monitor and adjust medication as needed. # HLD On statin Diet: Cardiac for now. NPO per GI recs to be ordered 11/8 PM IV: HL FULL CODE - will discuss in detail with the patient as he had expressed wished to be DNR in the SNF. SCD ppx Activity as tolerated Katt Mota MD Aug 13, 2020 09:11
[2020-08-13 12:00] VITALS: BP 98/59
[2020-08-13] MEDS ORDERED: METFORMIN HCL1000 M1 ORAL (13:31)
[2020-08-13] MEDS ORDERED: LEVOXYL50 MCG ORAL (13:31)
--- NOTE | 2020-08-13 14:56 | Cardiology Report ---
APPROVED REPORT EKG Measurement Heart [id number] <Conclusion> Normal sinus rhythm Right bundle branch block Abnormal ECG
[2020-08-13 16:00] VITALS: BP 123/60
--- NOTE | 2020-08-13 17:28 | General Progress Note ---
Subjective Allergies: Coded Allergies: No Known Allergies (Unverified , 08/10/20) Subjective above noted no abdominal symptoms Dark stool noted OB (+) Objective Last 24 Hour Vital Signs Date Time Temp Pulse Resp B/P (MAP) Pulse Ox O2 Delivery O2 Flow Rate FiO2 08/13/20 16:00 97.6 92 20 123/60 (81) 100 08/13/20 12:00 97.6 78 18 98/59 (72) 96 08/13/20 12:00 78 08/13/20 08:55 89 105/63 08/13/20 08:53 105/63 08/13/20 08:23 Room Air 08/13/20 08:21 97.5 89 18 105/63 (77) 96 08/13/20 08:00 97 08/13/20 04:00 96 08/13/20 04:00 97.5 93 20 100/58 (72) 95 08/13/20 00:00 96 08/13/20 00:00 97.9 91 20 108/60 (76) 98 08/12/20 21:00 Room Air 08/12/20 21:00 91 100/60 08/12/20 20:00 91 08/12/20 20:00 97.9 91 20 100/60 (73) 98 Intake and Output 08/12/20 08/13/20 19:00 07:00 Intake Total 324 ml 400 ml Output Total 500 ml Balance 324 ml -100 ml Intake Oral 324 ml 400 ml Output Urine Total 500 ml # Voids 5 # Bowel Movements 2 3 Laboratory Tests 08/12/20 20:02: POC Whole Blood Glucose [Pending] 08/13/20 05:51: POC Whole Blood Glucose 171H 08/13/20 07:25: White Blood Count 4.7L, Red Blood Count 2.69L, Hemoglobin 8.1L, Hematocrit 25.6L , Mean Corpuscular Volume 95, Mean Corpuscular Hemoglobin 30.2, Mean Corpuscular Hemoglobin Concent 31.7L, Red Cell Distribution Width 16.6H, Platelet Count 127L, Mean Platelet Volume 7.6, Neutrophils (%) (Auto) 47.9, Lymphocytes (%) (Auto) 39.4, Monocytes (%) (Auto) 10.5H, Eosinophils (%) (Auto) 1.1, Basophils (%) (Auto) 1.1, Hepatitis A IgM Antibody [Pending], Hepatitis B Surface Antigen [Pending], Hepatitis B Core IgM Antibody [Pending], Hepatitis C Antibody [Pending] 08/13/20 12:03: POC Whole Blood Glucose 155H Height (Feet): 5 Height (Inches): 7.00 Weight (Pounds): 142 Objective WDWN NCAT supple CTA RR abd soft flat no edema Assessment/Plan Status: stable Assessment/Plan: Assessment - GIB/Dark stools (OB +) - cirrhosis - Anemia Recommendations - po as tolerated - monitor labs - check hepatitis serologies - possible EGD Cullen Reese MD Aug 13, 2020 17:28
[2020-08-13 20:00] VITALS: BP 126/67
[2020-08-13] MEDS: cefTRIAXone 1 GM in NS 55 ML IVPB SCH (21:10)
[2020-08-13] MEDS: Atorvastatin 20mg tab ORAL SCH (21:10)
[2020-08-14] VITALS (11 sets, daily range): BP systolic 100–136; BP diastolic 50–76
[2020-08-14] MEDS: Octreotide Acetate 500 MCG in Sodium Chloride 499 ML IV SCH ×2 (03:00→13:20)
[2020-08-14] MEDS: NovoLOG Insulin Flexpen SUBQ SCH ×4 (06:30→23:02)
[2020-08-14 07:22] LABS: HEMATOCRIT 24.2 % (42.0-52.0); HEMOGLOBIN 7.7 G/DL (14.2-18.0); MEAN CORPUSCULAR VOLUME 95 FL (80-99); PLATELET COUNT 115 K/UL (150-450); RED BLOOD COUNT 2.54 M/UL (4.70-6.10); RED CELL DISTRIBUTION WIDTH 17.2 % (11.6-14.8); WHITE BLOOD COUNT 3.4 K/UL (4.8-10.8)
[2020-08-14 07:40] LABS: ALANINE AMINOTRANSFERASE 24 U/L (12-78); ALBUMIN/GLOBULIN RATIO 0.5 (1.0-2.7); ALKALINE PHOSPHATASE 197 U/L (46-116); ANION GAP 9 mmol/L (5-15); ASPARTATE AMINO TRANSFERASE 37 U/L (15-37); BILIRUBIN,TOTAL 0.8 MG/DL (0.2-1.0); BLOOD UREA NITROGEN 12 mg/dL (7-18); CALCIUM 7.3 MG/DL (8.5-10.1); CARBON DIOXIDE 20 MMOL/L (21-32); CHLORIDE 106 MMOL/L (98-107); SODIUM 135 MMOL/L (136-145)
[2020-08-14] MEDS ORDERED: Lidocaine 1% MPF 10mg/ml 5ml ONE (08:35)
[2020-08-14] MEDS ORDERED: NS 275ml ONE (08:35)
--- NOTE | 2020-08-14 08:40 | General Progress Note ---
Subjective Date patient seen: Aug 14, 2020 ROS Limited/Unobtainable: No Allergies: Coded Allergies: No Known Allergies (Unverified , 08/10/20) Subjective Denies abdominal pain, chest pain, shortness of breath, Reported melena. GUAIC positive Objective Last 24 Hour Vital Signs Date Time Temp Pulse Resp B/P (MAP) Pulse Ox O2 Delivery O2 Flow Rate FiO2 08/14/20 08:00 97.7 77 18 101/68 (79) 95 08/14/20 04:00 96.3 86 20 114/62 (79) 98 08/14/20 04:00 84 08/14/20 00:00 97.7 86 20 100/50 (67) 100 08/14/20 00:00 73 08/13/20 21:11 94 126/67 08/13/20 21:00 Room Air 08/13/20 20:00 97.5 94 20 126/67 (86) 100 08/13/20 20:00 84 08/13/20 16:00 97.6 92 20 123/60 (81) 100 08/13/20 16:00 79 08/13/20 12:00 97.6 78 18 98/59 (72) 96 08/13/20 12:00 78 08/13/20 08:55 89 105/63 08/13/20 08:53 105/63 Intake and Output 08/13/20 08/14/20 19:00 07:00 Intake Total 320 ml 120 ml Output Total 500 ml 500 ml Balance -180 ml -380 ml Intake Oral 320 ml 120 ml Output Urine Total 500 ml 500 ml # Voids 5 # Bowel Movements 1 2 Laboratory Tests 08/13/20 12:03: POC Whole Blood Glucose 155H 08/13/20 21:19: POC Whole Blood Glucose [Pending] 08/14/20 05:10: White Blood Count 3.4L, Red Blood Count 2.54L, Hemoglobin 7.7L, Hematocrit 24.2L , Mean Corpuscular Volume 95, Mean Corpuscular Hemoglobin 30.2, Mean Corpuscular Hemoglobin Concent 31.7L, Red Cell Distribution Width 17.2H, Platelet Count 115L, Mean Platelet Volume 7.5, Neutrophils (%) (Auto) , Lymphocytes (%) (Auto) , Monocytes (%) (Auto) , Eosinophils (%) (Auto) , Basophils (%) (Auto) , Neutrophils % (Manual) [Pending], Lymphocytes % (Manual) [Pending], Platelet Estimate [Pending], Platelet Morphology [Pending], Sodium Level 135L, Potassium Level 4.0, Chloride Level 106, Carbon Dioxide Level 20L, Anion Gap 9, Blood Urea Nitrogen 12, Creatinine 1.0, Estimat Glomerular Filtration Rate > 60, Glucose Level 142H, Calcium Level 7.3L, Total Bilirubin 0.8, Aspartate Amino Transf (AST/SGOT) 37, Alanine Aminotransferase (ALT/SGPT) 24, Alkaline Phosphatase 197H , Total Protein 6.3L, Albumin 2.0L, Globulin 4.3, Albumin/Globulin Ratio 0.5L Height (Feet): 5 Height (Inches): 7.00 Weight (Pounds): 117 General Appearance: WD/WN EENT: PERRL/EOMI Neck: non-tender Cardiovascular: normal rate Respiratory/Chest: lungs clear Abdomen: soft 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 Assessment/Plan Status: stable Assessment/Plan: 75 year old male with history of liver cirrhosis who is admitted due to : # Acute blood loss anemia due to GI hemorrhage of uncertain etiology PPI started PRBC 2 units given on admission 08/11/20 H/H lower today and Hb is 77 - will order 1 PRBC GI consultation appreciated, EGD is planned for today and the patient agreed to undergo the procedure which is necessary and medically indicated He consented # Liver Cirrhosis Monitor LFT's INR is stable at 1.1 Liver US with cirrhosis and perihepatic ascites # History of diabetes Monitor BG and [place] # Hypertension Monitor and adjust medication as needed. # HLD On statin Diet: Cardiac for now. NPO per GI recs to be ordered 11/8 PM IV: HL FULL CODE - will discuss in detail with the patient as he had expressed wished to be DNR in the SNF. SCD ppx Activity as tolerated Katt Mota MD Aug 14, 2020 08:40
[2020-08-14] MEDS ORDERED: NS 500ML IVPB ONE (08:59)
[2020-08-14] MEDS: Docusate 100mg cap ORAL SCH ×2 (09:00→22:50)
[2020-08-14] MEDS: metFORMIN 500mg tab ORAL SCH ×2 (09:00→17:13)
[2020-08-14] MEDS: Pantoprazole Inj IV SCH ×2 (09:00→22:50)
[2020-08-14] MEDS: Lisinopril 20mg tab ORAL SCH (09:00)
--- NOTE | 2020-08-14 09:11 | Anethesia Preoperative Eval ---
Anesthesia Pre-op PMH/ROS General Date of Evaluation: Aug 14, 2020 Time of Evaluation: 08:35 Anesthesiologist: elizabeth ASA Score: ASA 4 Mallampati Score Class I : Soft palate, uvula, fauces, pillars visible Class II: Soft palate, uvula, fauces visible Class III: Soft palate, base of uvula visible Class IV: Only hard plate visible Mallampati Classification: Class II Surgeon: luis daniel Diagnosis: anemia Surgical Procedure: egd Anesthesia History: none Social History: smoking - nonsmoker Family History: no anesthesia problems Allergies: Coded Allergies: No Known Allergies (Unverified , 08/10/20) Medications: see eMAR Patient NPO?: Yes Past Medical History Cardiovascular: Reports: HTN Gastrointestinal/Genitourinary: Reports: GERD, other - gi bleed, melena, cirrhosis Neurologic/Psychiatric: Reports: depression/anxiety, other - metabolic encephalopathy Endocrine: Reports: DM, hypothyroidism HEENT: Reports: [place] (L), [place] (R) Hematology/Immune: Reports: anemia Anesthesia Pre-op Phys. Exam Physician Exam Last Vital Signs Date Time Temp Pulse Resp B/P (MAP) Pulse Ox O2 Delivery O2 Flow Rate FiO2 08/14/20 08:00 97.7 77 18 101/68 (79) 95 08/13/20 21:00 Room Air Constitutional: NAD Neurologic: CN 2-12 intact Cardiovascular: RRR Respiratory: CTA Gastrointestinal: S/NT/ND Airway Exam Mallampati Score: Class II MO: limited Neck: flexible TMD: 2fb ROM: limited Anesthesia Pre-op A/P Labs Microbiology Date/Time Source Procedure Growth Status 08/10/20 23:36 Rectum - Final NO CARBAPENEM-RESISTANT ENTEROBACTERI... Complete 08/10/20 23:36 Nasal Nares MRSA Culture - Final NO METHICILLIN RESISTANT STAPH AUREUS... Complete Hematology Test 08/14/20 05:10 White Blood Count 3.4 K/UL (4.8-10.8) L Red Blood Count 2.54 M/UL (4.70-6.10) L Hemoglobin 7.7 G/DL (14.2-18.0) L Hematocrit 24.2 % (42.0-52.0) L Mean Corpuscular Volume 95 FL (80-99) Mean Corpuscular Hemoglobin 30.2 PG (27.0-31.0) Mean Corpuscular Hemoglobin Concent 31.7 G/DL (32.0-36.0) L Red Cell Distribution Width 17.2 % (11.6-14.8) H Platelet Count 115 K/UL (150-450) L Mean Platelet Volume 7.5 FL (6.5-10.1) Neutrophils (%) (Auto) % (45.0-75.0) Lymphocytes (%) (Auto) % (20.0-45.0) Monocytes (%) (Auto) % (1.0-10.0) Eosinophils (%) (Auto) % (0.0-3.0) Basophils (%) (Auto) % (0.0-2.0) Neutrophils % (Manual) Pending Lymphocytes % (Manual) Pending Platelet Estimate Pending Platelet Morphology Pending Chemistry Test 08/13/20 12:03 08/13/20 21:19 08/14/20 05:10 POC Whole Blood Glucose 155 MG/DL (74-106) H Pending Sodium Level 135 MMOL/L (136-145) L Potassium Level 4.0 MMOL/L (3.5-5.1) Chloride Level 106 MMOL/L (98-107) Carbon Dioxide Level 20 MMOL/L (21-32) L Anion Gap 9 mmol/L (5-15) Blood Urea Nitrogen 12 mg/dL (7-18) Creatinine 1.0 MG/DL (0.55-1.30) Estimat Glomerular Filtration Rate > 60 mL/min (>60) Glucose Level 142 MG/DL (74-106) H Calcium Level 7.3 MG/DL (8.5-10.1) L Total Bilirubin 0.8 MG/DL (0.2-1.0) Aspartate Amino Transf (AST/SGOT) 37 U/L (15-37) Alanine Aminotransferase (ALT/SGPT) 24 U/L (12-78) Alkaline Phosphatase 197 U/L (46-116) H Total Protein 6.3 G/DL (6.4-8.2) L Albumin 2.0 G/DL (3.4-5.0) L Globulin 4.3 g/dL Albumin/Globulin Ratio 0.5 (1.0-2.7) L Risk Assessment & Plan Assessment: asa4 Plan: mac Status Change Before Surgery: No Pre-Antibiotics Drug: Rosemary Galan MD Aug 14, 2020 09:11
[2020-08-14] MEDS ORDERED: fentaNYL 100 mcg/2 mL IV PRN (09:15)
[2020-08-14] MEDS ORDERED: Labetalol 5mg/ml 20ml vial IV PRN (09:15)
[2020-08-14] MEDS ORDERED: Atropine Inj 1mg/10ml Syr IVP PRN (09:15)
[2020-08-14] MEDS ORDERED: Midazolam 2mg/2ml Inj IVP PRN (09:15)
[2020-08-14] MEDS ORDERED: DiphenhydrAMINE 50mg/ml Inj IVP PRN (09:15)
--- NOTE | 2020-08-14 09:18 | Pre-Procedure Note/Attestation ---
Pre-Procedure Note/Attestation Complete Prior to Procedure Planned Procedure: not applicable Procedure Narrative: egd Indications for Procedure Pre-Operative Diagnosis: GIB Attestation I attest that I discussed the nature of the procedure; its benefits; risks and complications; and alternatives (and the risks and benefits of such alternatives), prior to the procedure, with the patient (or the patient's legal merchandising representative). I attest that, if there was a reasonable possibility of needing a blood transfusion, the patient (or the patient's legal merchandising representative) was given the [facility] standardized written summary, pursuant to the [place] Blood Safety Act ([place] Health and Safety Code # 1645, as amended). I attest that I re-evaluated the patient just prior to the surgery and that there has been no change in the patient's H&P, except as documented below: Ryne Morales MD Aug 14, 2020 09:18
--- NOTE | 2020-08-14 09:19 | General Progress Note ---
Subjective ROS Limited/Unobtainable: No Allergies: Coded Allergies: No Known Allergies (Unverified , 08/10/20) Objective Last 24 Hour Vital Signs Date Time Temp Pulse Resp B/P (MAP) Pulse Ox O2 Delivery O2 Flow Rate FiO2 08/14/20 08:00 97.7 77 18 101/68 (79) 95 08/14/20 04:00 96.3 86 20 114/62 (79) 98 08/14/20 04:00 84 08/14/20 00:00 97.7 86 20 100/50 (67) 100 08/14/20 00:00 73 08/13/20 21:11 94 126/67 08/13/20 21:00 Room Air 08/13/20 20:00 97.5 94 20 126/67 (86) 100 08/13/20 20:00 84 08/13/20 16:00 97.6 92 20 123/60 (81) 100 08/13/20 16:00 79 08/13/20 12:00 97.6 78 18 98/59 (72) 96 08/13/20 12:00 78 Intake and Output 08/13/20 08/14/20 19:00 07:00 Intake Total 320 ml 120 ml Output Total 500 ml 500 ml Balance -180 ml -380 ml Intake Oral 320 ml 120 ml Output Urine Total 500 ml 500 ml # Voids 5 # Bowel Movements 1 2 Laboratory Tests 08/13/20 12:03: POC Whole Blood Glucose 155H 08/13/20 21:19: POC Whole Blood Glucose [Pending] 08/14/20 05:10: White Blood Count 3.4L, Red Blood Count 2.54L, Hemoglobin 7.7L, Hematocrit 24.2L , Mean Corpuscular Volume 95, Mean Corpuscular Hemoglobin 30.2, Mean Corpuscular Hemoglobin Concent 31.7L, Red Cell Distribution Width 17.2H, Platelet Count 115L, Mean Platelet Volume 7.5, Neutrophils (%) (Auto) , Lymphocytes (%) (Auto) , Monocytes (%) (Auto) , Eosinophils (%) (Auto) , Basophils (%) (Auto) , Neutrophils % (Manual) [Pending], Lymphocytes % (Manual) [Pending], Platelet Estimate [Pending], Platelet Morphology [Pending], Sodium Level 135L, Potassium Level 4.0, Chloride Level 106, Carbon Dioxide Level 20L, Anion Gap 9, Blood Urea Nitrogen 12, Creatinine 1.0, Estimat Glomerular Filtration Rate > 60, Glucose Level 142H, Calcium Level 7.3L, Total Bilirubin 0.8, Aspartate Amino Transf (AST/SGOT) 37, Alanine Aminotransferase (ALT/SGPT) 24, Alkaline Phosphatase 197H , Total Protein 6.3L, Albumin 2.0L, Globulin 4.3, Albumin/Globulin Ratio 0.5L Height (Feet): 5 Height (Inches): 7.00 Weight (Pounds): 117 General Appearance: confused EENT: normal ENT inspection Neck: supple Cardiovascular: normal rate Respiratory/Chest: decreased breath sounds Abdomen: normal bowel sounds, non tender, soft Extremities: non-tender Assessment/Plan Status: stable Assessment/Plan: acute GIB needs EGd no family available patient unable to consent will proceed with MD consent Ryne Morales MD Aug 14, 2020 09:19
--- NOTE | 2020-08-14 09:27 | Endoscopy Procedure Note ---
Endoscopy Procedure Note General Indication for Procedure: gib Procedures Performed: EGD Operative Findings/Diagnosis: gastritis Specimen: yes Pt Tolerated Procedure Well: Yes Estimated Blood Loss: none Anesthesia Anesthesiologist: bao Anesthesia: MAC Inserted Devices Implant(s) used?: No GI Core Measures 50 yrs or older w/o bx or poly: Not Applicable 10yrs. F/U recommended: Not Applicable Ryne Morales MD Aug 14, 2020 09:27
--- NOTE | 2020-08-14 09:57 | Immediate Post-Op Evaluation ---
Immediate Post-Op Evalulation Immediate Post-Op Evalulation Procedure: egd w/bx Date of Evaluation: Aug 14, 2020 Time of Evaluation: 09:44 IV Fluids: 250ml .9ns Blood Products: none Estimated Blood Loss: negligible Blood Pressure Systolic: 94 Blood Pressure Diastolic: 58 Pulse Rate: 68 Respiratory Rate: 18 O2 Sat by Pulse Oximetry: 100 Temperature (Fahrenheit): 97.4 Pain Score (1-10): 0 Nausea: No Vomiting: No Complications none Patient Status: awake, reacts, patent Hydration Status: adequate Drug: Rosemary Galan MD Aug 14, 2020 09:57
--- NOTE | 2020-08-14 10:19 | 48 Hour Post Anesthesia Eval ---
Post Anesthesia Evaluation Procedure: egd w/bx Date of Evaluation: Aug 14, 2020 Time of Evaluation: 09:46 Blood Pressure Systolic: 101 0: 68 Pulse Rate: 77 Respiratory Rate: 18 Temperature (Fahrenheit): 97.4 O2 Sat by Pulse Oximetry: 100 Nausea: No Vomiting: No Pain Intensity: 0 Hydration Status: adequate Cardiopulmonary Status: stable Mental Status/LOC: patient returned to baseline Post-Anesthesia Complications: none Follow-up care needed: N/A Rosemary Sy MD Aug 14, 2020 10:19
--- NOTE | 2020-08-14 10:45 | Procedure Note ---
DATE OF PROCEDURE: 08/14/2020 SURGEON: Ryne Morales MD. REFERRING PHYSICIAN: Katt Mota MD. PROCEDURE: Upper endoscopy with biopsy. ANESTHESIA: Per Dr. Leon. INSTRUMENT: Olympus adult flexible upper endoscope. INDICATION: Upper GI bleeding. REASON FOR PROCEDURE: The procedure, risks, benefits, and possible consequences, including hemorrhage, aspiration, perforation and infection, and alternative treatments, were explained to the patient/legal guardian by Dr. Ryne Morales and the patient/legal guardian understood and accepted these risks. PROCEDURE IN DETAIL: After informed consent was obtained and the patient was adequately sedated, Olympus upper endoscope was advanced from mouth into the second portion of the duodenum and retroflexion was performed in the stomach. GE junction was found to be about 36 centimeter from the incisors. No evidence of any obvious esophagitis. No esophageal varices. In the stomach, there was diffuse gastritis. Random biopsy from antrum was obtained to rule out H. pylori infection. Otherwise, no evidence of any gastric varices. No obvious any evidence of gastric ulceration. Duodenal mucosa also grossly looked within normal limits. At this time, the upper endoscope was retrieved and procedure was terminated. SUMMARY OF FINDINGS: Gastritis, otherwise normal upper endoscopic examination. RECOMMENDATIONS: Follow biopsy results and treat accordingly. We will plan for colonoscopy tomorrow. We are going to try to convince the patient to stay with the prep and do the colonoscopy tomorrow. I want to thank Dr. Mota for this kind referral. Ryne Morales M.D. DR: ALYX JOB#: [id number] CC: TIMOTHY
[2020-08-14] MEDS ORDERED: Golytely 4L ORAL SCH (14:00)
[2020-08-14] MEDS: D5 1/2NS w/KCl 20mEq 1,000 ML IV SCH (16:16)
[2020-08-14] MEDS: cefTRIAXone 1 GM in NS 55 ML IVPB SCH (21:00)
[2020-08-14] MEDS: Atorvastatin 20mg tab ORAL SCH (22:50)
[2020-08-15] VITALS (9 sets, daily range): BP systolic 95–136; BP diastolic 55–79
[2020-08-15] MEDS: Octreotide Acetate 500 MCG in Sodium Chloride 499 ML IV SCH ×2 (00:37→09:51)
[2020-08-15] MEDS: NovoLOG Insulin Flexpen SUBQ SCH ×3 (05:59→16:30)
[2020-08-15] MEDS: D5 1/2NS w/KCl 20mEq 1,000 ML IV SCH (06:07)
--- NOTE | 2020-08-15 06:44 | Anethesia Preoperative Eval ---
Anesthesia Pre-op PMH/ROS General Date of Evaluation: Aug 15, 2020 Time of Evaluation: 06:40 Anesthesiologist: elizabeth ASA Score: ASA 4 Mallampati Score Class I : Soft palate, uvula, fauces, pillars visible Class II: Soft palate, uvula, fauces visible Class III: Soft palate, base of uvula visible Class IV: Only hard plate visible Mallampati Classification: Class II Surgeon: luis daniel Diagnosis: anemia, gi bleed Surgical Procedure: colonoscopy Anesthesia History: none Social History: smoking - nonsmoker Family History: no anesthesia problems Allergies: Coded Allergies: No Known Allergies (Unverified , 08/10/20) Medications: see eMAR Patient NPO?: Yes Past Medical History Cardiovascular: Reports: HTN Gastrointestinal/Genitourinary: Reports: other - melena, cirrhosis, Neurologic/Psychiatric: Reports: other - metabolic encephalopathy Endocrine: Reports: DM, hypothyroidism Hematology/Immune: Reports: anemia, other - covid-19 negative Anesthesia Pre-op Phys. Exam Physician Exam Last Vital Signs Date Time Temp Pulse Resp B/P (MAP) Pulse Ox O2 Delivery O2 Flow Rate FiO2 08/15/20 04:00 82 08/14/20 22:50 136/66 08/14/20 21:00 Room Air 08/14/20 16:00 96.9 18 95 08/14/20 10:25 3 Constitutional: NAD Neurologic: CN 2-12 intact Airway Exam Mallampati Score: Class II MO: limited Neck: flexible TMD: 2fb ROM: limited Teeth: missing Anesthesia Pre-op A/P Labs Microbiology Date/Time Source Procedure Growth Status 08/10/20 23:36 Rectum - Final NO CARBAPENEM-RESISTANT ENTEROBACTERI... Complete 08/10/20 23:36 Nasal Nares MRSA Culture - Final NO METHICILLIN RESISTANT STAPH AUREUS... Complete Chemistry Test 08/14/20 11:51 08/14/20 16:30 08/14/20 22:57 POC Whole Blood Glucose 252 MG/DL (74-106) H Pending 199 MG/DL (74-106) H Risk Assessment & Plan Assessment: asa4 Plan: mac Status Change Before Surgery: No Pre-Antibiotics Drug: Rosemary Galan MD Aug 15, 2020 06:44
[2020-08-15] MEDS ORDERED: Labetalol 5mg/ml 20ml vial IV PRN (06:45)
[2020-08-15] MEDS ORDERED: fentaNYL 100 mcg/2 mL IV PRN (06:45)
[2020-08-15] MEDS ORDERED: Midazolam 2mg/2ml Inj IVP PRN (06:45)
[2020-08-15] MEDS ORDERED: DiphenhydrAMINE 50mg/ml Inj IVP PRN (06:45)
[2020-08-15] MEDS ORDERED: Atropine Inj 1mg/10ml Syr IVP PRN (06:45)
[2020-08-15] MEDS ORDERED: NS 275ml ONE (07:00)
[2020-08-15] MEDS ORDERED: Lidocaine 1% MPF 10mg/ml 5ml ONE (07:00)
[2020-08-15] MEDS ORDERED: NS 500ML IVPB ONE (07:20)
--- NOTE | 2020-08-15 07:25 | Pre-Procedure Note/Attestation ---
Pre-Procedure Note/Attestation Complete Prior to Procedure Planned Procedure: not applicable Procedure Narrative: colonoscopy Indications for Procedure Pre-Operative Diagnosis: GIB Attestation I attest that I discussed the nature of the procedure; its benefits; risks and complications; and alternatives (and the risks and benefits of such alternatives), prior to the procedure, with the patient (or the patient's legal branch customer service representative). I attest that, if there was a reasonable possibility of needing a blood transfusion, the patient (or the patient's legal branch customer service representative) was given the [facility] standardized written summary, pursuant to the [place] Blood Safety Act ([place] Health and Safety Code # 1645, as amended). I attest that I re-evaluated the patient just prior to the surgery and that there has been no change in the patient's H&P, except as documented below: Ryne Morales MD Aug 15, 2020 07:25
--- NOTE | 2020-08-15 07:26 | GI Progress Note ---
Assessment/Plan Assessment/Plan patient has severe anemia needs colonoscopy patient can not consent will proceed with MD consent Objective Last 24 Hour Vital Signs Date Time Temp Pulse Resp B/P (MAP) Pulse Ox O2 Delivery O2 Flow Rate FiO2 08/15/20 04:00 98.7 77 16 132/74 (93) 97 08/15/20 04:00 82 08/15/20 00:00 98.2 85 17 125/79 (94) 97 08/15/20 00:00 75 08/14/20 22:50 75 136/66 08/14/20 21:00 Room Air 08/14/20 20:00 98.4 82 18 130/76 (94) 95 08/14/20 20:00 75 08/14/20 16:00 96.9 76 18 136/66 (89) 95 08/14/20 16:00 75 08/14/20 12:00 97.9 79 20 124/64 (84) 96 08/14/20 11:33 78 08/14/20 10:25 97.4 81 20 116/64 100 Room Air 3 08/14/20 10:19 77 18 100 08/14/20 10:17 68 18 100 08/14/20 10:00 77 16 113/59 100 Room Air 3 08/14/20 09:50 75 17 118/61 100 Nasal Cannula 3 08/14/20 09:40 78 15 103/51 100 Nasal Cannula 3 08/14/20 09:32 98.2 75 20 105/58 100 Nasal Cannula 3 08/14/20 09:00 Room Air 08/14/20 09:00 77 101/68 08/14/20 08:00 97.7 77 18 101/68 (79) 95 08/14/20 07:28 80 Intake and Output 08/14/20 08/15/20 19:00 07:00 Intake Total 1200 ml 500 ml Output Total 500 ml 1200 ml Balance 700 ml -700 ml Intake Oral 360 ml 500 ml IV Total 840 ml Output Urine Total 500 ml 1200 ml # Voids 2 # Bowel Movements 2 4 Laboratory Tests Test 08/14/20 11:51 08/14/20 16:30 08/14/20 22:57 08/15/20 06:40 POC Whole Blood Glucose 252 MG/DL (74-106) H Pending 199 MG/DL (74-106) H White Blood Count Pending Red Blood Count Pending Hemoglobin Pending Hematocrit Pending Mean Corpuscular Volume Pending Mean Corpuscular Hemoglobin Pending Mean Corpuscular Hemoglobin Concent Pending Red Cell Distribution Width Pending Platelet Count Pending Mean Platelet Volume Pending Neutrophils (%) (Auto) Pending Lymphocytes (%) (Auto) Pending Monocytes (%) (Auto) Pending Eosinophils (%) (Auto) Pending Basophils (%) (Auto) Pending Sodium Level Pending Potassium Level Pending Chloride Level Pending Carbon Dioxide Level Pending Blood Urea Nitrogen Pending Creatinine Pending Estimat Glomerular Filtration Rate Pending Glucose Level Pending Calcium Level Pending Total Bilirubin Pending Aspartate Amino Transf (AST/SGOT) Pending Alanine Aminotransferase (ALT/SGPT) Pending Alkaline Phosphatase Pending Total Protein Pending Albumin Pending Globulin Pending Height (Feet): 5 Height (Inches): 7.00 Weight (Pounds): 117 Ryne Morales MD Aug 15, 2020 07:26
--- NOTE | 2020-08-15 07:33 | Endoscopy Procedure Note ---
Endoscopy Procedure Note General Indication for Procedure: anemia, GIB Procedures Performed: flexible sigmoidoscopy Operative Findings/Diagnosis: poor prep Specimen: none Pt Tolerated Procedure Well: Yes Estimated Blood Loss: none Anesthesia Anesthesiologist: chris Anesthesia: MAC Inserted Devices Implant(s) used?: No GI Core Measures 50 yrs or older w/o bx or poly: Not Applicable 10yrs. F/U recommended: Not Applicable Ryne Morales MD Aug 15, 2020 07:33
[2020-08-15 07:44] LABS: BASOPHILS % (AUTO) 1.4 % (0.0-2.0); EOSINOPHILS % (AUTO) 1.2 % (0.0-3.0); HEMATOCRIT 29.9 % (42.0-52.0); HEMOGLOBIN 9.8 G/DL (14.2-18.0); LYMPHOCYTES % (AUTO) 38.9 % (20.0-45.0); MEAN CORPUSCULAR VOLUME 92 FL (80-99); MONOCYTES % (AUTO) 10.4 % (1.0-10.0); NEUTROPHILS % (AUTO) 48.1 % (45.0-75.0); PLATELET COUNT 112 K/UL (150-450); RED BLOOD COUNT 3.23 M/UL (4.70-6.10); RED CELL DISTRIBUTION WIDTH 17.1 % (11.6-14.8); WHITE BLOOD COUNT 4.7 K/UL (4.8-10.8)
[2020-08-15 07:57] LABS: ALANINE AMINOTRANSFERASE 20 U/L (12-78); ALBUMIN 1.9 G/DL (3.4-5.0); ALBUMIN/GLOBULIN RATIO 0.4 (1.0-2.7); ALKALINE PHOSPHATASE 203 U/L (46-116); ANION GAP 9 mmol/L (5-15); ASPARTATE AMINO TRANSFERASE 36 U/L (15-37); BILIRUBIN,TOTAL 1.2 MG/DL (0.2-1.0); BLOOD UREA NITROGEN 9 mg/dL (7-18); CALCIUM 7.4 MG/DL (8.5-10.1); CARBON DIOXIDE 20 MMOL/L (21-32); CHLORIDE 105 MMOL/L (98-107); CREATININE 0.9 MG/DL (0.55-1.30); POTASSIUM 3.7 MMOL/L (3.5-5.1); SODIUM 134 MMOL/L (136-145)
--- NOTE | 2020-08-15 07:58 | Immediate Post-Op Evaluation ---
Immediate Post-Op Evalulation Immediate Post-Op Evalulation Procedure: colonoscopy Date of Evaluation: Aug 15, 2020 Time of Evaluation: 07:54 IV Fluids: 150ml 0.9ns Blood Products: none Estimated Blood Loss: negligible Blood Pressure Systolic: 95 Blood Pressure Diastolic: 56 Pulse Rate: 70 Respiratory Rate: 18 O2 Sat by Pulse Oximetry: 100 Temperature (Fahrenheit): 97.0 Pain Score (1-10): 0 Nausea: No Vomiting: No Complications none Patient Status: awake, reacts, patent Hydration Status: adequate Drug: Rosemary Galan MD Aug 15, 2020 07:58
--- NOTE | 2020-08-15 07:59 | 48 Hour Post Anesthesia Eval ---
Post Anesthesia Evaluation Procedure: colonoscopy Date of Evaluation: Aug 15, 2020 Time of Evaluation: 07:58 Blood Pressure Systolic: 100 0: 56 Pulse Rate: 70 Respiratory Rate: 18 Temperature (Fahrenheit): 97.0 O2 Sat by Pulse Oximetry: 100 Nausea: No Vomiting: No Pain Intensity: 0 Hydration Status: adequate Cardiopulmonary Status: stable Mental Status/LOC: patient returned to baseline Post-Anesthesia Complications: none Follow-up care needed: N/A Rosemary Sy MD Aug 15, 2020 07:59
[2020-08-15 08:08] LABS: BILIRUBIN,DIRECT 0.8 MG/DL (0.0-0.3)
--- NOTE | 2020-08-15 08:15 | Procedure Note ---
DATE OF PROCEDURE: 08/15/2020 SURGEON: Ryne Morales MD. PROCEDURE: Diagnostic flexible sigmoidoscopy. ANESTHESIA: Per Dr. Leon. INSTRUMENT: Olympus adult flexible colonoscope. INDICATION: Anemia, stool OB positive, history of hep C cirrhosis. REASON FOR PROCEDURE: The procedure, risks, benefits, and possible consequences, including hemorrhage, aspiration, perforation and infection, and alternative treatments, were explained to the patient/legal guardian by Dr. Ryne Morales and the patient/legal guardian understood and accepted these risks. PROCEDURE IN DETAIL: After informed consent was obtained and the patient was adequately sedated, first rectal exam was performed which was positive for internal hemorrhoids. Then the scope was advanced from the rectum into the sigmoid colon. The prep was extremely poor. We could not visualize anything. At this time, we decided to cancel the procedure. SUMMARY OF FINDINGS: 1. Incomplete exam. 2. Internal hemorrhoids. RECOMMENDATIONS: At this time, we are going to just recommend to monitor hemoglobin and hematocrit. Transfuse as needed. Consider repeat colonoscopy if the patient shows signs and symptoms of lower GI bleeding. I want to thank, Dr. Mota for this kind referral. Ryne Morales M.D. DR: Angélica JOB#: [id number] CC: Katt Mota MD [facility]
[2020-08-15] MEDS: metFORMIN 500mg tab ORAL SCH ×2 (09:48→17:07)
[2020-08-15] MEDS: Lisinopril 20mg tab ORAL SCH (09:49)
[2020-08-15] MEDS: Docusate 100mg cap ORAL SCH (09:49)
[2020-08-15] MEDS: Pantoprazole Inj IV SCH (09:49)
[2020-08-15] MEDS ORDERED: PROTONIX20 MG ORAL (11:54)
--- NOTE | 2020-08-15 11:56 | Discharge Instructions ---
Discharge Instructions Discharge Instructions Services at Discharge: day care Diet: 2 GM sodium (low sodium) Resume Normal Activity?: Yes Activity: resume normal activities Special Instructions notify MD if any black stool or bright red blood per rectum For Congestive Heart Failure Reminder Report to your physician any weight gain of 5 pounds or more in one week. Katt Mota MD Aug 15, 2020 11:56
--- NOTE | 2020-08-15 12:00 | Discharge Summary ---
Discharge Summary Hospital Course Date of Admission Aug 11, 2020 at 03:15 Date of Discharge 08/15/2020 Admitting Diagnosis symptomatic anemia HPI Papi Moore is a 75 year old male who was admitted on Aug 11, 2020 at 03:15 for Symptomatic Anemia Hospital Course 75 year old male with history of liver cirrhosis who is admitted due to : # Acute blood loss anemia due to GI hemorrhage of uncertain etiology PPI started on admission. PRBC 2 units given on admission 08/11/2008/14 with Hb decreased to 7/7 1 PRBC given EGD 08/14 : Mild gastritis. Biopsies taken and colonoscopy coordinated for 08/15 which was not successful due to poor preparation. External hemorrhoids noted. Per discussion with GI enrollment consultant Dr. Morales, the patient is not actively bleeding at this time and he approves to discharge the patient back to SNF. If recurrent anemia or GIB new attempt for colonoscopy will be done. # Liver Cirrhosis Monitor LFT's INR is stable at 1.1 Liver US with cirrhosis and perihepatic ascites # History of diabetes Monitor BG and [place] # Hypertension Stable. # HLD On statin Diet: Tolerating diet Disposition: SNF today. Discharge Medications New Medications: Pantoprazole Sodium (Protonix) 20 Mg Tablet.dr 20 MG ORAL DAILY for 30 Days, #30 TAB Continued Medications: Atorvastatin Calcium* (Atorvastatin Calcium*) 40 Mg Tablet 40 MG ORAL BEDTIME for Dyslipidemia, TAB Levothyroxine Sodium* (Levoxyl*) 50 Mcg Tablet 50 MCG ORAL DAILY for HYPOTHYROIDISM, TAB Take in the morning on an empty stomach, at least 30 minutes before food. Lisinopril (Lisinopril*) 20 Mg Tablet 20 MG ORAL DAILY for Hypertension, TAB Metformin Hcl* (Metformin Hcl*) 1,000 Mg Tablet 1000 MG ORAL BID for Diabetes Mellitus, TAB Metoprolol Tartrate* (Metoprolol Tartrate*) 25 Mg Tablet 50 MG ORAL DAILY for htn, TAB Discharge Condition Upon Discharge: stable Discharge Vital Signs Last Vital Signs Date Time Temp Pulse Resp B/P (MAP) Pulse Ox O2 Delivery O2 Flow Rate FiO2 08/15/20 09:49 70 118/61 08/15/20 09:00 Room Air 08/15/20 08:09 97.5 17 100 3 Discharge Disposition Patient was discharged to [facility]. Prior SNF Discharge Diagnoses: (1) Anemia (2) Symptomatic anemia (3) GI bleed (4) Cirrhosis (5) Melena Discharge Instructions Discharge Instructions Services Upon Discharge: day care Activity: resume normal activities Katt Mota MD Aug 15, 2020 12:00
[2020-08-15] MEDS ORDERED: Neosporin Oint Ud Pkt TOPIC SCH (12:59)
== END 2020-08-15 18:27 | DRG 241 ==
LOC: EDBD 23:04 → EMR 23:25 → 4E 08-11 01:41 → EDBEDREQ 08-11 01:48 → OBSVTOIN 08-11 03:15 → EDBEDREQ 08-11 04:24 → 2E 08-11 04:34
PROC: 30233N1 Transfusion of Nonautologous Red Blood Cells into Peripheral Vein, Percutaneous Approach (ICD-10-PCS; principal; 2020-08-11)
PROC: 0DB78ZX Excision of Stomach, Pylorus, Via Natural or Artificial Opening Endoscopic, Diagnostic (ICD-10-PCS; 2020-08-14)
PROC: 0DJD8ZZ Inspection of Lower Intestinal Tract, Via Natural or Artificial Opening Endoscopic (ICD-10-PCS; 2020-08-15)
DX: K29.71 Gastritis, unspecified, with bleeding (principal); D62 Acute posthemorrhagic anemia; K74.60 Unspecified cirrhosis of liver; Z79.84 Long term (current) use of oral hypoglycemic drugs; E11.9 Type 2 diabetes mellitus without complications; I10 Essential (primary) hypertension; E78.5 Hyperlipidemia, unspecified; K64.8 Other hemorrhoids
CPT/HCPCS: 36415; 71045; 76700; 80053; 82140; 82248; 82270; 82962; 83036; 83690; 84443; 84484; 85007; 85025; 85610; 85730; 86705; 86709; 86803; 86850; 86900; 86901; 86920; 87040; 87081; 87340; 93005; 94003; 94150; 96361; 96365; 96375; 99291; J1815; J7030; U0002